=== PATIENT | male | born 1955 | race Caucasian/White ===

== ENCOUNTER → 2025-05-07 | Outpatient (BNVA) | payer MEDICARE, BC, SELFPAY | END | disposition home or self-care (01) | PROVIDERS: PCP Family Medicine; Referring Provider Family Medicine; Visit Provider Urology | DX: N40.1 Benign prostatic hyperplasia with lower urinary tract symptoms (principal); N13.8 Other obstructive and reflux uropathy; N52.9 Male erectile dysfunction, unspecified; G20.C Parkinsonism, unspecified | CPT/HCPCS: 81003; 99212; G0463 ==